=== PATIENT | female | born 1945 | race American Indian/Alaskan Native ===

== ENCOUNTER 2019-05-07 00:33 | Observation (INO) | payer MEDICARE ==
[2019-05-07] MEDS ORDERED: NACL 0.9% 1000 ML IV ONE (01:20)
--- NOTE | 2019-05-07 01:23 | Emergency Department Report ---
ED General Adult HPI - General Chief complaint: Abdominal Pain Stated complaint: AMS Time Seen by Provider: 05/07/19 01:01 Source: patient, family, EMS ( EMS documentation not available at time of chart dictation ), RN notes reviewed Mode of arrival: Stretcher Limitations: Physical Limitation - History of Present Illness Initial comments: Primary care Dr.: Dr Randall Cardiology: Dr Chinchilla Past medical history: "Congestive heart failure." Patient has indwelling defibrillator. Unknown what her ejection fraction is. This is a 73-year-old female. This patient is not known to this provider previously. She endorses that she has a distant history of tumor resection 30 years ago, possible hernia repair 30 years ago. She presents to the ER with complaint of diffuse abdominal pain, resolved headache, malaise, fatigue, diarrhea, weakness. Symptoms started last night. The headache was frontal. The headache is not sudden or thunderclap in nature. The headache did not reach maximal intensity within an hour. The headache is now resolved. Her main complaint is abdominal pain at this time. The abdominal pain is aching and throbbing, increases with palpation and decreases with rest. She is not sure she has a fever. She is not nauseous. She denies chest pain. She denies new or different shortness of breath. She denies urinary symptoms. -: Gradual, hour(s) Location: head, abdomen Quality: other Consistency: other Improves with: other Worsens with: other Associated Symptoms: other - Related Data Allergies Allergy/AdvReac Type Severity Reaction Status Date / Time No Known Allergies Allergy Unverified 05/07/19 01:36 ED Review of Systems ROS: Stated complaint: AMS Other details as noted in HPI Constitutional: malaise, weakness ENT: denies: congestion Respiratory: denies: wheezing Cardiovascular: denies: syncope Gastrointestinal: abdominal pain. denies: diarrhea Genitourinary: denies: dysuria Musculoskeletal: denies: back pain Neurological: weakness Hematological/Lymphatic: denies: easy bleeding ED Past Medical Hx - Past Medical History Hx Congestive Heart Failure: Yes - Surgical History Hx Internal Defibrillator: Yes - Social History Smoking Status: Never Smoker Substance Use Type: None ED Physical Exam - General Limitations: No Limitations, Physical Limitation General appearance: alert, in no apparent distress - Head Head exam: Present: atraumatic, normocephalic - Eye Eye exam: Present: normal appearance, EOMI. Absent: nystagmus - ENT ENT exam: Present: normal exam, mucous membranes dry, normal external ear exam - Neck Neck exam: Present: normal inspection, full ROM. Absent: tenderness, meningismus - Respiratory Respiratory exam: Present: normal lung sounds bilaterally. Absent: respiratory distress - Cardiovascular Cardiovascular Exam: Present: regular rate, normal rhythm, normal heart sounds. Absent: bradycardia, tachycardia, irregular rhythm, systolic murmur, diastolic murmur, rubs, gallop - GI/Abdominal GI/Abdominal exam: Present: soft, tenderness, other (there is mild diffuse tenderness, with no rebound, guarding or peritoneal signs). Absent: distended, guarding, rebound, rigid, pulsatile mass - Extremities Exam Extremities exam: Present: normal inspection, full ROM, other (2+ pulses noted in the bilateral upper, lower extremities. There is no long bone tenderness. Musculoskeletal compartments are soft. The pelvis is stable.). Absent: pedal edema, calf tenderness - Back Exam Back exam: Present: normal inspection. Absent: tenderness, CVA tenderness (L), paraspinal tenderness - Neurological Exam Neurological exam: Present: alert, other (is no facial droop. The tongue is midline. Extraocular movements are intact bilaterally. The patient is alert and exhibits decision-making capacity. The patient is free from distracting injury.) - Psychiatric Psychiatric exam: Present: normal affect, normal mood - Skin Skin exam: Present: warm, dry, intact, normal color. Absent: rash ED Course Vital Signs 05/07/19 05/07/19 05/07/19 00:47 01:30 02:00 Temperature 97.4 F L Pulse Rate 74 72 75 Respiratory 18 18 Rate Blood Pressure 96/48 115/56 [Right] O2 Sat by Pulse 97 99 Oximetry 05/07/19 03:25 Temperature Pulse Rate Respiratory Rate Blood Pressure 109/64 [Right] O2 Sat by Pulse Oximetry - Reevaluation(s) Reevaluation #1: 05/07/19 01:59 Differential diagnosis, including not limited to: Perforated viscus, colitis, diverticulitis, acute coronary syndrome, pneumonia, urinary tract infection, bacteremia, viremia, occult sepsis, volvulus, inflammatory bowel disease 05/07/19 01:59 Assessment and plan: 73-year-old female with hypotension, and abdominal pain. She is ill-appearing. Blood pressure slightly improved at this time. Family has requested transfer to another facility where all the patient's medical records are. Given hypotension and undifferentiated abdominal pain, the patient in my pain is not stable for transfer at this time. Extensive discussion had with family regarding this particular point. We recommended laboratory studies, IV fluids, urinalysis, rectal temperature, and CT scan of the abdomen and pelvis with IV contrast. The patient indicates that 30 years ago, she had a nonsp ecific cutaneous reaction to "IVP dye." Extensive discussion had with patient and family, regarding nature of IV dye. We discussed that given that patient has abdominal pain and hypotension, we woul d need the best diagnostic study possible, to exclude a potentially time sensitive condition. Explained to the patient that we could provide premedication to help avert a potentially allergic are anaphylactoid reaction. The patient verbalizes understanding. She is providing informed refusal of CAT scan with IV contrast. She is amenable at this time to CAT scan without IV contrast. Patient and family understand that without IV contrast specific time sensitive conditions may be missed on diagnostic study, including infection, abscess, thrombosis. Laboratory studies urinalysis, rectal temperature pending at this time. During the entire history and physical, I am chaperoned by ER material handling technician Tanika Aparicio Reevaluation #2: 05/07/19 05:11 CT scan abdomen and pelvis negative for acute disease. Urinalysis equivocal. Given undifferentiated abdominal pain, advanced age, tenderness, nondiagnostic imaging, we've recommended admission for observation and serial abdominal examinations. Discussed this with the patient, who is amenable to this. Hospital physician, Dr. Arreguin has graciously agreed to place the patient on observation for undifferentiated abdominal pain. ED Medical Decision Making - Lab Data Result diagrams: 05/07/19 01:39 05/07/19 01:39 Vital Signs 05/07/19 00:47 Temperature 97.4 F L Pulse Rate 74 - EKG Data -: EKG Interpreted by De EKG shows normal: sinus rhythm Rate: normal - EKG Data When compared to previous EKG there are: previous EKG unavailable 05/07/19 02:02 There is no prior EKG available for comparison. This is a sinus rhythm, there is a left axis deviation, there is a left anterior fascicular block, there is low voltage, there is poor R wave progression, numerous T-wave abnormalities, the EKG is abnormal, the EKG is not consistent with ST elevation myocardial infarction - Radiology Data Radiology results: pending, report reviewed, image reviewed Print Report Referring Physician: GORDON CULVER Patient Name: ALEXEI ARREGUIN Date of : 1945 Sex: Female Report Date: 2019-05-07 Report Status: Finalized Findings [facility] [address] [place] [address] XRay Report Signed Patient: ALEXEI ARREGUIN MR#: [id number] [birth year] : 1945 Acct:[id number] Age/Sex: 73 / F ADM Date: 05/07/19 Loc: ED Attending Dr: Ordering Physician: GORDON CULVER MD Date of Service: 05/07/19 Procedure(s): XR chest 1V ap Accession Number(s): [id number] cc: GORDON CULVER MD Fluoro Time In Minutes: CHEST 1 VIEW INDICATION / CLINICAL INFORMATION: weak hypotension. COMPARISON: None available. FINDINGS: SUPPORT DEVICES: ICD on the left HEART / MEDIASTINUM: No significant abnormality. LUNGS / PLEURA: No significant pulmonary or pleural abnormality. No pneumothorax. ADDITIONAL FINDINGS: No significant additional findings. IMPRESSION: 1. No acute findings. Signer Name: Lencho Ray MD Signed: 05/07/2019 1:50 AM Workstation Name: [id number] Transcribed By: PAWEL Dictated By: Lencho Ray MD Electronically Authenticated By: Lencho Ray MD Signed Date/Time: 05/07/19149 DD/ 9 Critical care attestation.: If time is entered above; I have spent that time in minutes in the direct care of this critically ill patient, excluding procedure time. ED Disposition Clinical Impression: History of hypotension, Abdominal pain Disposition: DC-09 OP ADMIT IP TO THIS HOSP Is pt being admited?: Yes Condition: Fair Instructions: Abdominal Pain (ED) Forms: AMA Form
--- NOTE | 2019-05-07 01:55 | XRay Report ---
CHEST 1 VIEW INDICATION / CLINICAL INFORMATION: weak hypotension. COMPARISON: None available. FINDINGS: SUPPORT DEVICES: ICD on the left HEART / MEDIASTINUM: No significant abnormality. LUNGS / PLEURA: No significant pulmonary or pleural abnormality. No pneumothorax. ADDITIONAL FINDINGS: No significant additional findings. IMPRESSION: 1. No acute findings. Signer Name: Lencho Ray MD Signed: 05/07/2019 1:50 AM Workstation Name: [id number]
[2019-05-07 02:07] LABS: Hematocrit 36.8 % (30.3-42.9); Hemoglobin 12.8 gm/dl (10.1-14.3); Mean Corpuscular HGB Conc 35 % (30-34); Mean Corpuscular Volume 96 fl (79-97); Platelet Count 246 K/mm3 (140-440); Red Blood Count 3.82 M/mm3 (3.65-5.03); Red Cell Distribution Width 12.6 % (13.2-15.2)
[2019-05-07 02:25] LABS: Alanine Aminotransferase 7 units/L (7-56); Albumin 4.3 g/dL (3.9-5); BUN/Creatinine Ratio 11; Blood Urea Nitrogen 9 mg/dL (7-17); Calcium 8.7 mg/dL (8.4-10.2); Hemolysis Index 1
[2019-05-07 02:59] LABS: Bacteria,Urine 1+ /HPF (Negative); Bilirubin,Urine NEG (Negative); Blood,Urine NEG (Negative); Mucus,Urine FEW /HPF; Urobilinogen,Urine < 2.0 mg/dL (<2.0)
[2019-05-07 03:02] LABS: Color,Urine YelloW (Yellow)
[2019-05-07 03:06] LABS: INR TNR (0.87-1.13); Partial Thromboplastin Time TNR Sec. (24.2-36.6)
--- NOTE | 2019-05-07 04:51 | Cat Scan Report ---
CT head/brain wo con INDICATION / CLINICAL INFORMATION: headache weak hypotension. TECHNIQUE: All CT scans at this location are performed using CT dose reduction for ALARA by means of automated e xposure control. COMPARISON: None available. FINDINGS: No intracranial hemorrhage or abnormal extra-axial fluid collection. The ventricular system and basilar cisterns are normal. No territorial infarction or mass effect. No osseous or sinus abnormality. IMPRESSION: 1. No acute intracranial abnormality. Signer Name: Lencho Ray MD Signed: 05/07/2019 4:47 AM Workstation Name: [id number]
--- NOTE | 2019-05-07 04:57 | Cat Scan Report ---
CT abdomen pelvis wo con INDICATION / CLINICAL INFORMATION: abd pain weak hypotensiobn. TECHNIQUE: All CT scans at this location are performed using CT dose reduction for ALARA by means of automated e xposure control. COMPARISON: None available. FINDINGS: The lower lungs are clear. ABDOMEN: The gallbladder, liver, spleen pancreas and adrenal glands are normal. No urinary calculi. The kidneys are normal. No small bowel dilatation. Pelvis: The appendix is normal. Diverticulosis of the sigmoid colon. No evidence of acute diverticulitis. There are no dependent fluid collections seen in the pelvis. Degenerative changes are seen at L5-S1. There is a benign appearing osseous deformity of the T10 vertebral body which is only partially visua lized. IMPRESSION: 1. Sigmoid diverticulosis. 2. No acute findings in the abdomen or pelvis. Signer Name: Lencho Ray MD Signed: 05/07/2019 4:53 AM Workstation Name: [id number]
[2019-05-07] MEDS ORDERED: FLAGYL 500 MG/100 ML 500 MG/100 ML BAG IV ONE (05:08)
[2019-05-07] MEDS ORDERED: LEVAQUIN 500MG/100ML 500 MG/100 ML BAG IV ONE (05:08)
[2019-05-07 05:37] LABS: INR 1.07 (0.87-1.13); Partial Thromboplastin Time 33.2 Sec. (24.2-36.6)
[2019-05-07] MEDS ORDERED: SODIUM CHLORIDE FLUSH SYRINGE 10 ML IV PRN (05:52)
[2019-05-07] MEDS ORDERED: TYLENOL PO PRN (05:52)
[2019-05-07] MEDS ORDERED: ZOFRAN IV PRN (05:52)
[2019-05-07 06:06] LABS: Basophils % (Manual) 0 % (0.0-1.8); Total Cells Counted 100
[2019-05-07 06:07] LABS: Anisocytosis Few; Large Platelets 1+; Platelet Estimate Consistent w Auto
--- NOTE | 2019-05-07 06:09 | History and Physical Report ---
History of Present Illness Date of examination: 05/07/19 History of present illness: 74 year-old man with a history of CHF, hypertension comes emergency room with complaints of abdominal pain that started this morning. Pain is right above the umbilicus which she described as a hurting pain, constant, intensity 7/10, no radiation, can't identify exacerbating or relieving factors. Pain is now resolved. She had 1 episode of stool here, no diarrhea, fever or chills. Persistent blood pressure dropped to the 80s, responsive to IV fluids. Status post flagyl and levaquin ER eview Of Systems: Constitutional: no weight loss, fever, chills Ears, eyes, nose, mouth and throat: no nasal congestion, no nasal discharge, no sinus pressure, blurry vision, diplopia Neck: No neck pain or rigidity. Cardiovascular: No palpitations, chest pain Respiratory: No shortness of breath, cough Gastrointestinal: No hematochezia, abdominal pain Genitourinary : no dysuria, frequency , hematuria Musculoskeletal: no muscle ache , joint pain Integumentary: no rash, no pruritis Neurological: no parathesias, focal weakness Endocrine: no cold or heat intolerance, no polyuria or polydipsia Hematologic/Lymphatic: no easy bruising, no easy bleeding, no gland swelling Allergic/Immunologic: no urticaria, no angioedema. 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, defibrillator, hernia repair FAMILY HISTORY:hypertension, diabetes SOCIAL HISTORY: Denies tobacco, drugs, alcohol Medications and Allergies Allergies Allergy/AdvReac Type Severity Reaction Status Date / Time No Known Allergies Allergy Verified 05/07/19 05:55 Active Meds: Active Medications Acetaminophen (Tylenol) 650 mg PO Q4H PRN PRN Reason: Pain MILD(1-3)/Fever >100.5/CRONIN Enoxaparin Sodium (Lovenox) 40 mg SUB-Q QDAY@1000 MITCHELL Ondansetron HCl (Zofran) 4 mg IV Q8H PRN PRN Reason: Nausea And Vomiting Sodium Chloride (Sodium Chloride Flush Syringe 10 Ml) 10 ml IV BID MITCHELL Sodium Chloride (Sodium Chloride Flush Syringe 10 Ml) 10 ml IV PRN PRN PRN Reason: LINE FLUSH Exam - Physical Exam Narrative exam: General Apperance: The patient sitting in bed no acute distress HEENT: Normocephalic, atraumatic. Pupils equally round and reactive to light, extraocular movement intact, and no sclericterus or JVD or thyromegaly or nodule. Neck supple, no carotid bruit, mucous membranes moist, no exudate or erythema Heart: S1-S2, regular is rhythm Lungs: Clear to auscultation bilaterally, breathing comfortable Abdomen: Positive bowel sounds, soft, nontender, nondistended, no organomegaly Extremities: No edema cyanosis clubbing Skin: no rash, nodule, warm and dry Neuro:CN 2 -12 intact, motor/sensory intact, speech is fluent - Constitutional Vitals: Temp Pulse Resp BP Pulse Ox 97.4 F L 75 18 109/64 99 05/07/19 00:47 05/07/19 02:00 05/07/19 02:00 05/07/19 03:25 05/07/19 02:00 Results - Labs CBC & Chem 7: 05/07/19 01:39 05/07/19 01:39 Labs: Abnormal lab results 05/07/19 05/07/19 05/07/19 Range/Units 01:39 01:39 01:39 MCH 34 H (28-32) pg MCHC 35 H (30-34) % RDW 12.6 L (13.2-15.2) % Seg Neuts % (Manual) 77.0 H (40.0-70.0) % Potassium 3.5 L (3.6-5.0) mmol/L Glucose 105 H (65-100) mg/dL Salicylates < 0.3 L (2.8-20.0) mg/dL Acetaminophen (10.0-30.0) ug/mL 05/07/19 Range/Units 01:39 MCH (28-32) pg MCHC (30-34) % RDW (13.2-15.2) % Seg Neuts % (Manual) (40.0-70.0) % Potassium (3.6-5.0) mmol/L Glucose (65-100) mg/dL Salicylates (2.8-20.0) mg/dL Acetaminophen < 5.0 L (10.0-30.0) ug/mL - Imaging and Cardiology Chest x-ray: report reviewed CT scan - abdomen: report reviewed CT Scan - head: report reviewed CT scan - pelvis: report reviewed Assessment and Plan Assessment Abdominal pain, nonspecific Relative hypotension improving CHF, stable Of hypertension Plan Continue to monitor blood pressure, hold antihypertensive, diuretics DVT prophylaxis, replete potassium
[2019-05-07] MEDS ORDERED: KCL 10MEQ/100ML 10 MEQ/100 ML BAG IV SCH (07:00)
[2019-05-07] MEDS ORDERED: NACL 0.9% 250ML 250 ML ONE ×2 (08:59→09:43)
[2019-05-07] MEDS ORDERED: KCL 10MEQ/100ML 10 MEQ/100 ML BAG IV ONE (08:59)
[2019-05-07 09:14] VITALS: BP 104/48
[2019-05-07] MEDS ORDERED: ENOXAPARIN SUB-Q SCH ×2 (10:00)
[2019-05-07] MEDS ORDERED: SODIUM CHLORIDE FLUSH SYRINGE 10 ML IV SCH (10:00)
--- NOTE | 2019-05-07 12:03 | Discharge Summary ---
Providers - Providers Date of Admission: 05/07/19 05:52 Date of discharge: 05/07/19 Attending physician: ARVIN ROGER Primary care physician: BRIGHT CUTTER Hospitalization Condition: Fair Hospital course: Patient presented with nonspecific abdominal pain. Patient 73-year-old history of congestive heart failure hypertension presented with abdominal pain which she described as 7 out of 10 and short lasting. Over left flank. Patient has not had any pain since hospitalization here. States she was to go home has family member going to [place] and she has to get home. CT scan show only diverticulosis. Patient description of pain here is consistent with gastritis. Patient no nausea vomiting no diarrhea no abdominal pain the pain in her abdomen is completely unremarkable. Her exam of abdomen is completely unremarkable. Patient has no evidence of CHF is been stable hypothyroidism stable hypertension fairly well controlled. Appears to be stable to be discharged to Dr. Pittman Disposition: DC-01 TO HOME OR SELFCARE - Discharge Diagnoses (1) Abdominal pain Status: Acute (2) History of hypotension Status: Acute Comment: Ration had episode of hypotension was corrected quickly with IV fluids. Patient received IV fluids already. We'll hold all blood pressure medications and follow with Dr. Randall. Core Measure Documentation - Palliative Care Palliative Care/ Comfort Measures: Not Applicable - Core Measures Any of the following diagnoses?: none Exam - Constitutional Vitals: Temp Pulse Resp BP Pulse Ox 98.6 F 77 19 104/48 99 05/07/19 07:28 05/07/19 09:00 05/07/19 09:00 05/07/19 09:00 05/07/19 09:00 General appearance: Present: no acute distress, well-nourished - EENT Eyes: Present: PERRL ENT: hearing intact, clear oral mucosa - Neck Neck: Present: supple, normal ROM - Respiratory Respiratory effort: normal Respiratory: bilateral: CTA - Cardiovascular Heart Sounds: Present: S1 & S2. Absent: rub, click - Extremities Extremities: pulses symmetrical, No edema Peripheral Pulses: within normal limits - Abdominal General gastrointestinal: Present: soft, non-tender, non-distended, normal bowel sounds Female genitourinary: Present: normal - Integumentary Integumentary: Present: clear, warm, dry - Musculoskeletal Musculoskeletal: gait normal, strength equal bilaterally - Psychiatric Psychiatric: appropriate mood/affect, intact judgment & insight - Neurologic Neurologic: CNII-XII intact, moves all extremities Plan Activity: no restrictions Diet: low cholesterol, low carbohydrate Follow up with: PRIMARY CARE, [Primary Care Provider] - 3-5 Days Forms: AMA Form
== END 2019-05-07 15:25 | disposition home or self-care (01) ==
LOC: ED 00:33 → SUATTDRO 00:33 → 4A 05:52
PROVIDERS: ADMIT Internal Medicine; ATTEND Internal Medicine
DX: I11.0 Hypertensive heart disease with heart failure (principal); I50.9 Heart failure, unspecified; I95.9 Hypotension, unspecified; R10.9 Unspecified abdominal pain
CPT/HCPCS: 36415; 70450; 71045; 74176; 80053; 81001; 82140; 82550; 84439; 84443; 84484; 85007; 85025; 85610; 85730; 87040; 87086; 93005; 93010; 96361; 96365; 96367; 96372; 99284; G0378; J1650; J1956; J3480; J7030; J7050; 80320; G0480